=== PATIENT | female | born 1985 | race Caucasian/White ===

== ENCOUNTER 2020-06-25 15:00 | Inpatient (IN) ==
[2020-06-25 15:58] LABS: Basophils # 0.1 10*3/uL (0.0-0.2); Basophils % 0.4 % (0.0-0.8); Hematocrit 30.6 VOL% (35.7-47.0); Hemoglobin 10.1 GM/DL (12.0-16.0); Immature Granulocytes % 0.8 %; Immature Granulocytes Absolute 0.23 #; Lymphocytes % 3.5 % (21.3-54.2); Mean Corpuscular Volume 95.3 FL (87-102); Monocytes % 7.4 % (1.7-12.7); Neutrophils % 87.9 % (38.7-73.9); Platelet Count 811 T/CUMM (130-400); Red Blood Count 3.21 MC/CUMM (3.8-5.5); Red Cell Distribution Width 13.2 % (9.3-17.3); White Blood Count 27.4 T/CUMM (4-12)
[2020-06-25 16:20] LABS: Calcium 7.5 MG/DL (8.5-10.1); Osmolality,Calculated 277.7 MOS/KG (273-304)
[2020-06-25] MEDS ORDERED: ACETAMINOPHEN 325 MG TABLET PO PRN (16:23)
[2020-06-25] MEDS: ONDANSETRON 4 MG/2 ML VIAL IV PRN ×2 (16:35→22:30)
[2020-06-25] MEDS: HYDROmorphone 2 MG/1 ML VIAL IV PRN ×2 (16:35→20:15)
[2020-06-25 16:46] LABS: Lymphocytes 6 % (20-55); Segmented Neutrophils 87 % (50-85); Total Cells Counted 100
[2020-06-25 16:47] LABS: Hypochromasia 1+; Macrocytosis Slight; Platelet Estimate Increased
[2020-06-25 20:44] LABS: Hematocrit 25.9 VOL% (35.7-47.0); Hemoglobin 8.7 GM/DL (12.0-16.0)
[2020-06-25] MEDS: LACTATED RINGERS 1,000 ML IV SCH (21:15)
[2020-06-25] MEDS: DOCUSATE SODIUM 100 MG CAPSULE PO SCH (21:15)
[2020-06-26] MEDS: HYDROmorphone 2 MG/1 ML VIAL IV PRN ×3 (00:12→16:01)
[2020-06-26] MEDS: ONDANSETRON 4 MG/2 ML VIAL IV PRN ×2 (04:33→17:36)
[2020-06-26 06:23] LABS: Basophils # 0.1 10*3/uL (0.0-0.2); Basophils % 0.5 % (0.0-0.8); Eosinophils % 0.2 % (0.00-10.9); Hematocrit 22.8 VOL% (35.7-47.0); Hemoglobin 7.5 GM/DL (12.0-16.0); Immature Granulocytes % 0.3 %; Immature Granulocytes Absolute 0.04 #; Lymphocytes # 1.1 10*3/uL (1.4-4.0); Lymphocytes % 8.2 % (21.3-54.2); Mean Corpuscular HGB Conc 32.9 GM/DL (32-36); Mean Platelet Volume 10.2 FL (9.6-12.0); Monocytes % 10.2 % (1.7-12.7); Neutrophils % 80.6 % (38.7-73.9); Platelet Count 668 T/CUMM (130-400); Red Blood Count 2.35 MC/CUMM (3.8-5.5); Red Cell Distribution Width 13.3 % (9.3-17.3); White Blood Count 13.1 T/CUMM (4-12)
[2020-06-26 06:37] LABS: Calcium 7.8 MG/DL (8.5-10.1); Osmolality,Calculated 273.8 MOS/KG (273-304)
[2020-06-26] MEDS: PANTOPRAZOLE 40 MG TABLET PO SCH (09:16)
[2020-06-26] MEDS: DOCUSATE SODIUM 100 MG CAPSULE PO SCH ×2 (09:16→20:39)
[2020-06-26] MEDS ORDERED: ENOXAPARIN 40 MG/0.4 ML SYRINGE SUBCUT SCH (10:25)
[2020-06-26] MEDS ORDERED: HYDROmorphone 2 MG/1 ML VIAL IV PRN (10:43)
[2020-06-26] MEDS ORDERED: ALBUTEROL/IPRATROPIUM 3 ML NEB RESP TX PRN (10:44)
[2020-06-26] MEDS: ALBUTEROL/IPRATROPIUM 3 ML NEB RESP TX SCH ×2 (14:15→19:20)
[2020-06-26 15:24] LABS: Hematocrit 21.1 VOL% (35.7-47.0)
[2020-06-26] MEDS ORDERED: SODIUM CHLORIDE 0.9% 1,000 ML IV PRN (15:43)
[2020-06-26] MEDS ORDERED: KETOROLAC 30 MG/1 ML VIAL IV ONE (16:01)
[2020-06-26] MEDS: LACTATED RINGERS 1,000 ML IV SCH (16:06)
[2020-06-26] MEDS: KETOROLAC 15 MG/1 ML VIAL IV SCH (23:18)
[2020-06-27] MEDS: ONDANSETRON 4 MG/2 ML VIAL IV PRN ×2 (02:19→09:08)
[2020-06-27] MEDS: HYDROmorphone 2 MG/1 ML VIAL IV PRN ×2 (03:27→22:11)
[2020-06-27] MEDS: KETOROLAC 15 MG/1 ML VIAL IV SCH ×4 (03:44→21:11)
[2020-06-27] MEDS: ALBUTEROL/IPRATROPIUM 3 ML NEB RESP TX SCH ×4 (05:32→19:28)
[2020-06-27 06:12] LABS: Basophils # 0.1 10*3/uL (0.0-0.2); Basophils % 0.6 % (0.0-0.8); Eosinophils # 0.2 10*3/uL (0.0-0.87); Eosinophils % 1.7 % (0.00-10.9); Hematocrit 24.5 VOL% (35.7-47.0); Hemoglobin 8.4 GM/DL (12.0-16.0); Immature Granulocytes % 0.3 %; Immature Granulocytes Absolute 0.03 #; Lymphocytes # 2.1 10*3/uL (1.4-4.0); Mean Corpuscular HGB Conc 34.3 GM/DL (32-36); Mean Corpuscular Volume 90.4 FL (87-102); Mean Platelet Volume 10.2 FL (9.6-12.0); Monocytes % 11.5 % (1.7-12.7); Neutrophils % 63.9 % (38.7-73.9); Platelet Count 524 T/CUMM (130-400); Red Blood Count 2.71 MC/CUMM (3.8-5.5); Red Cell Distribution Width 14.7 % (9.3-17.3); White Blood Count 9.5 T/CUMM (4-12)
[2020-06-27 06:13] LABS: Hematocrit 23.9 VOL% (35.7-47.0); Hemoglobin 8.3 GM/DL (12.0-16.0)
[2020-06-27] MEDS: PANTOPRAZOLE 40 MG TABLET PO SCH (09:50)
[2020-06-27] MEDS: DOCUSATE SODIUM 100 MG CAPSULE PO SCH ×2 (09:50→21:11)
[2020-06-27] MEDS: LACTATED RINGERS 1,000 ML IV SCH (18:04)
[2020-06-27] MEDS ORDERED: PROMETHAZINE 25 MG/1 ML VIAL IM PRN (19:43)
[2020-06-28] MEDS: ALBUTEROL/IPRATROPIUM 3 ML NEB RESP TX SCH (01:00)
[2020-06-28] MEDS: KETOROLAC 15 MG/1 ML VIAL IV SCH ×4 (03:33→22:36)
[2020-06-28 07:46] LABS: Basophils # 0.1 10*3/uL (0.0-0.2); Eosinophils # 0.2 10*3/uL (0.0-0.87); Eosinophils % 2.2 % (0.00-10.9); Hematocrit 23.4 VOL% (35.7-47.0); Hemoglobin 8.1 GM/DL (12.0-16.0); Immature Granulocytes % 0.4 %; Immature Granulocytes Absolute 0.03 #; Lymphocytes % 25.2 % (21.3-54.2); Mean Corpuscular HGB Conc 34.6 GM/DL (32-36); Mean Corpuscular Volume 90.7 FL (87-102); Mean Platelet Volume 9.9 FL (9.6-12.0); Monocytes % 8.8 % (1.7-12.7); Neutrophils % 62.4 % (38.7-73.9); Platelet Count 547 T/CUMM (130-400); Red Blood Count 2.58 MC/CUMM (3.8-5.5); Red Cell Distribution Width 14.9 % (9.3-17.3)
[2020-06-28] MEDS: DOCUSATE SODIUM 100 MG CAPSULE PO SCH ×2 (09:04→20:13)
[2020-06-28] MEDS: PANTOPRAZOLE 40 MG TABLET PO SCH (09:04)
[2020-06-29] MEDS: KETOROLAC 15 MG/1 ML VIAL IV SCH ×2 (03:14→09:54)
[2020-06-29 06:45] LABS: Hemoglobin 7.9 GM/DL (12.0-16.0)
[2020-06-29] MEDS: DOCUSATE SODIUM 100 MG CAPSULE PO SCH (08:33)
[2020-06-29] MEDS: PANTOPRAZOLE 40 MG TABLET PO SCH (08:34)
[2020-06-29 11:29] VITALS: BP 123/75
== END 2020-06-29 14:41 | disposition home or self-care (01) | DRG 200 ==
LOC: EDUNIT# → N.ED 15:00 → N.EDINP 16:23 → N.3E 20:15
PROVIDERS: ADMIT Student in an Organized Health Care Education/Training Program; ATTEND Student in an Organized Health Care Education/Training Program